=== PATIENT | female | born 1985 | race Caucasian/White ===

== ENCOUNTER 2021-07-16 07:45 | Inpatient (IN) ==
[2021-07-16] MEDS ORDERED: OXYTOCIN 30 UNITS/500 ML BAG IV PRN (08:03)
[2021-07-16 08:27] LABS: Hematocrit (blood only) 38.5 % (37-47); Hemoglobin 12.8 g/dL (12.0-16.0); Mean Corpuscular Hemoglobin 30.5 pg (25-34); Mean Corpuscular Hgb Conc 33.2 g/dL (32-36); Mean Corpuscular Volume 91.9 fL (80-100); Mean Platelet Volume 10.6 fL (7.4-10.4); Platelet Count 190 K/uL (130-400); RDW Coefficient of Variation 14.5 % (11.5-14.5); RDW Standard Deviation 48.9 fL (36.4-46.3); Red Blood Count 4.19 M/uL (4.2-5.4)
[2021-07-16] MEDS ORDERED: PENICILLIN G POTASSIUM 6 MU in DEXTROSE 5% 250 ML IV ONE (08:30)
[2021-07-16] MEDS: LACTATED RINGER'S 1,000 ML IV PRN ×3 (09:18→20:23)
[2021-07-16] MEDS: OXYTOCIN 30 UNITS/500 ML BAG IV PRN (09:30)
--- NOTE | 2021-07-16 09:45 | Procedure Note ---
Procedure Note Date of Service July 16, 2021 Note Patient was placed in L&D bed and a reactive NST was obtained. The flores bulb placement process was explained to the patient and all questions answered to her satisfaction. She was positioned in lithotomy, and a latex flores was prepared with a lubricated stylet and a syringe of 30cc sterile water. A gloved hand was used to identify and examine the cervix which was found to be fingertip, thick and high. The catheter was advanced to a point just outside the internal os, then the flores was slid forward off of the stylet and into the uterine cavity outside the amniotic sac. The stylet was removed, and the flores balloon was in flated to 30cc. The flores was gently seated downward against the internal cervical os and fixed to the patient's thigh. The heart tones remained cat 1. Coding
--- NOTE | 2021-07-16 12:08 | Labor Progress Brief Note ---
Date of Service July 16, 2021 Subjective Beginning to feel some back pain now. 35yo at 40w5d with IVF ICSI , RH neg, GBS pos. Flores in place as of this morning, was not able to be brought in last night for flores due to patient census and multiple COVID+ patients in unit. Assessment & Plan (1) resulting from in vitro fertilization, antepartum: Plan: Cont flores, Pit, epidural on request. (2) GBS (group B Streptococcus carrier), +RV culture, currently : Plan: Cont PCN Admission and Anticipated Discharge Date Admission Date: July 16, 2021 Physical Exam Genitourinary: /balloon in place on exam FHT Cat 1 [place] rare ctx tracing Results & Data ([facility]) Vital Signs (Past 12 Hours) Vital Signs Temp Pulse Resp BP 07/16/21 11:30 97.9 F 70 20 140/64 07/16/21 10:37 68 20 126/61 07/16/21 09:35 72 18 123/59 L 07/16/21 08:10 97.9 F 18 07/16/21 07:57 83 130/79 Coding Level of Care Code None Diagnoses resulting from in vitro fertilization, antepartum O09.819 GBS (group B Streptococcus carrier), +RV culture, currently O99.820
[2021-07-16] MEDS: PENICILLIN G POTASSIUM 3 MU in DEXTROSE 5% 100 ML IV PRN ×3 (13:26→21:34)
--- NOTE | 2021-07-16 15:43 | Labor Progress Brief Note ---
Date of Service July 16, 2021 Subjective Comfortable Assessment & Plan (1) resulting from in vitro fertilization, antepartum: Plan: Start increasing pitocin, epidural on request. AROM after epidural and first two doses PCN complete. Admission and Anticipated Discharge Date Admission Date: July 16, 2021 Physical Exam Genitourinary: [place] removed with gentle traction, /-2 FHT Cat 1 [place] Q3-4 Pit @ 3 Results & Data ([facility] [place]) Vital Signs (Past 12 Hours) Vital Signs Temp Pulse Resp BP 07/16/21 15:24 62 133/59 L 07/16/21 14:20 64 18 121/72 07/16/21 13:33 65 20 134/71 07/16/21 12:33 81 18 117/66 07/16/21 11:30 97.9 F 70 20 140/64 07/16/21 10:37 68 20 126/61 07/16/21 09:35 72 18 123/59 L 07/16/21 08:10 97.9 F 18 07/16/21 07:57 83 130/79 Coding Level of Care Code None Diagnoses resulting from in vitro fertilization, antepartum O09.819
[2021-07-16] MEDS ORDERED: ePHEDrine sulfate 50 MG/ML AMP ONE (19:52)
[2021-07-16] MEDS ORDERED: fentaNYL citrate 100 MCG/2 ML VIAL ONE (19:53)
[2021-07-16] MEDS ORDERED: SODIUM CHLORIDE 0.9% INJ 10 ML VIAL ONE ×2 (19:53→23:45)
[2021-07-16] MEDS ORDERED: BUPIVACAINE 0.25% 30 ML VIAL ONE ×2 (19:53→23:46)
[2021-07-16] MEDS ORDERED: fentaNYL 2MCG/ML ROPIVACAINE 1.25MG/ML 100 ML BAG EPI ONE (19:53)
[2021-07-16] MEDS ORDERED: NALOXONE HCL 0.4 MG/1 ML VIAL/CARP IV PRN (20:24)
[2021-07-16] MEDS ORDERED: diphenhydrAMINE 50 MG/ML VIAL IV PRN (20:24)
[2021-07-16] MEDS ORDERED: NALOXONE HCL 1 MG in SODIUM CHLORIDE 0.9% 1000ML 1,000 ML IV PRN (20:24)
[2021-07-16] MEDS ORDERED: fentaNYL 2MCG/ML ROPIVACAINE 1.25MG/ML 100 ML BAG EPI PRN (20:24)
[2021-07-16] MEDS ORDERED: NALBUPHINE HCL INJ 10 MG/ML AMP IV PRN (20:24)
[2021-07-16] MEDS ORDERED: ePHEDrine sulfate 50 MG/ML AMP IV PRN (20:24)
--- NOTE | 2021-07-16 20:24 | Anesthesiology Consultation ---
Date of Service July 16, 2021 Assessment & Plan Chart Review Chart Review: Patient NOT seen in Pre Admission Testing and Acceptable Risk for Labor Epidural Consults Requested none ASA ASA2 Proposed Anesthesia Anesthesia Type: Labor Epidural Risk / Benefits Reviewed With: PT / POA / Parent / Guardian, Accepts Plan and Informed Consent Obtained History Height/Weight Height: 5 ft 10 in Weight: 88.451 kg Allergies Allergy/AdvReac Type Severity Reaction Status Date / Time No Known Allergies Allergy Verified 07/15/21 13:54 Medications Home Medications Medication Instructions Recorded Confirmed Last Taken prenat.vits,severino,mlp-[id number] 1 tab PO DAILY 12/06/20 07/16/21 07/15/21 calcium carbonate [Tums] PO 05/02/21 07/15/21 Unknown ferrous sulfate PO 05/02/21 07/15/21 07/13/21 Active Medications Generic Name Dose Route Start Last Admin Trade Name Freq PRN Reason Stop Dose Admin Oxytocin 30 units in 500 mls @ 15 mls/hr 07/16/21 08:03 07/16/21 19:15 Pitocin IV 07/18/21 08:02 0.9 units/hr .Q24H PRN 15 mls/hr Labor Induction/Augmentation Titration Protocol 0.9 UNITS/HR Lactated Ringer's 1,000 mls @ 125 mls/hr 07/16/21 08:03 07/16/21 20:23 Lr IV 07/18/21 08:02 125 mls/hr .Q8H PRN Administration L&D Protocol Protocol Penicillin G Potassium 3 mu/ 106 mls @ 100 mls/hr 07/16/21 11:04 07/16/21 18:39 Dextrose IV 07/26/21 11:03 Infused Q4H PRN Infusion GBS(+) Until Delivery Past Medical History Medical History (Updated 07/16/21 @ 08:31 by Yudelka Velasquez, ARLIN) Asthma Heart murmur History of chicken pox Exercise / Class Metabolic Activity II 4-5 Yardwork/Stairs/Walk up hill Past Family History Family History Grandmother (Maternal) Ovarian cancer Grandfather (Paternal) Diabetes Hypertension Grandmother (Paternal) Diabetes Father Hypertension Kidney stone Mother Pituitary tumor Denies family history of Breast cancer Colorectal cancer Past Surgical History Surgical History S/P inguinal hernia repair S/P wisdom tooth extraction Past Anesthesia History No Hx of Anesthesia Complications and No Family Hx of Anesthesia Complications History of PONV No Hx of PONV and No Hx of Motion Sickness Social History Smoking Status: Never smoker Hx Alcohol Use: No Hx Substance Use: No Physical Exam Vital Signs Last Vital Signs Temp 36.9 C 07/16/21 19:15 Pulse 81 07/16/21 20:22 Resp 16 07/16/21 20:15 BP 119/56 L 07/16/21 20:22 Pulse Ox 96 07/16/21 20:19 ENMT Mouth: no dentition abnormality Thyromental Distance: > or= 3.5 Finger Breadths Mallampati Class: II Neck normal visual inspection Respiratory normal respiratory effort Auscultation: lungs clear to auscultation bilaterally Cardiovascular Rate/Rhythm: regular rate and regular rhythm Psychiatric Orientation: alert Testing Laboratory Results 07/16/21 08:15
[2021-07-16] MEDS: ONDANSETRON INJ 2 MG/ML 2 ML VIAL IV PRN (23:06)
--- NOTE | 2021-07-16 23:40 | Communication Note ---
Date of Service: July 16, 2021 After speaking with the gastrointestinal technician and nursing staff, apparently several patients on the OB floor were having symptoms of nausea, pruritis, and sedation. HR variability OK during labor for all patients. Each of these patients have been receiving continuous epidural anesthesia with Ropivicane 0.1% + Fentanyl 2mcg/cc. All have had excellent pain control. All of these epidural infusions had been mixed at the same time on the same date. I suspect that the concentration of fentanyl may be incorrect in these infusions. The epidural infusion has been stopped and patient is being monitored with continuous CO2, pulse oxymetry, and 1:1 nursing care. Epidural bags have sent for mass spectrometry to determine drug concentration in the infusion. Plan to observe closely, supplemental O2 as needed, verbal and tactile stimulation, and low dose naloxone as needed for significant respiratory depression, and zofran as needed for nausea. New epidural infusions have been ordered and will be prepared fresh from pharmacy. In the mean time, I will dose patients with low dose plain bupivicane for breakthrough labor pains. Side effects of the fentanyl including respiratory depression should be significantly improved after infusion has been stopped for ~3-3.5 hours, though this may be difficult to adequately predict in the patient. Will follow along closely with OB until resolution. I have spoken with the patient and her , they understand the plan and have had the chance to ask any questions.
--- NOTE | 2021-07-17 00:16 | Communication Note ---
Date of Service: July 17, 2021 Delayed documentation: Patient's epidural infusion was stopped due to suspicion of an error in formulation of epidural drug bags in use on labor and delivery at this time. The patient was experiencing sedation, blurred vision and itching. She and the FOB were counseled this doctor and (separately) by the anesthesiologist, Dr. Johnson. We discussed both the availability of as-needed pain management for her labor and the management of possible excess opiate dose which she may have received. All questions were answered to the satisfaction of the patient and the FOB. She is without labor pain at this time. monitoring is reassuring.
[2021-07-17] MEDS: LACTATED RINGER'S 1,000 ML IV PRN ×3 (01:02→20:02)
[2021-07-17] MEDS: PENICILLIN G POTASSIUM 3 MU in DEXTROSE 5% 100 ML IV PRN ×6 (01:32→22:01)
--- NOTE | 2021-07-17 03:02 | Labor Progress Brief Note ---
Date of Service July 17, 2021 Subjective Patient remains without pain, however is now experiencing a resurgence of her side effects of somnolence and itching. This has been gradual since the new epidural bag was hung. She is worried about this. Assessment & Plan (1) resulting from in vitro fertilization, antepartum: Plan: Patient is undergoing induction of labor for postdates. Currently 5cm, s/p AR OM, and has been recently experiencing side effects after epidural placement that are concerning for possible opiate / narcotization. Due to concerns for improper dosing in epidural bag, the original bag was replaced and now due to recurring symptoms the new bag is also being discontinued. This situation has been discussed with Dr. Johnson who is returning to the hospital to provide as- needed boluses of ropivicaine or bupivicaine epidurally for pain control, as well as to assist in management of residual narcotization if necessary. Meanwhile the patient is able to maintain adequate respiratory rate and O2 saturation with verbal and tactile stimulation. tracing is reassuring. The patient and FOB were counseled on the difficulty of deciding whether it is best to continue pitocin, given the risk of infection if she remains ruptured and without progression towards delivery, or to allow pitocin to stay off, in hopes that more time with the fetus in-utero will decrease the risks of the requiring narcan or resuscitation after delivery. We settle on using a non-aggressive induction approach, resuming pitocin but aiming for contractions Q3-4min, hoping for forward progress without reaching delivery in the next hour or so. Admission and Anticipated Discharge Date Admission Date: July 16, 2021 Physical Exam Genitourinary: Cervix unchanged at 5/80/-2 LOF clear continues FHT Cat 1 [place] with LA waves, no true contraction pattern Pitocin off since epidural bag removed / replaced Results & Data ([facility]) Vital Signs (Past 12 Hours) Vital Signs Temp Pulse Resp BP Pulse Ox 07/17/21 02:54 72 96 07/17/21 02:49 53 L 89 L 07/17/21 02:47 54 L 95/49 L 07/17/21 02:44 52 L 94 07/17/21 02:39 76 97 07/17/21 02:34 85 97 07/17/21 02:32 55 L 96/54 L 87 L 07/17/21 02:29 66 96 07/17/21 02:24 57 L 96 07/17/21 02:20 10 L 07/17/21 02:19 61 89 L 07/17/21 02:18 66 86 L 07/17/21 02:14 55 L 92 07/17/21 02:09 54 L 91 07/17/21 02:07 49 L 87 L 07/17/21 02:04 59 L 92 07/17/21 02:02 60 12 107/56 L 07/17/21 01:59 59 L 95 07/17/21 01:54 60 93 07/17/21 01:49 56 L 97 07/17/21 01:47 58 L 104/51 L 07/17/21 01:44 67 98 07/17/21 01:41 56 L 85 L 07/17/21 01:39 54 L 88 L 07/17/21 01:36 59 L 87 L 07/17/21 01:34 69 94 07/17/21 01:32 58 L 18 108/53 L 07/17/21 01:29 62 96 07/17/21 01:26 56 L 101/50 L 07/17/21 01:24 69 95 07/17/21 01:21 68 96/45 L 07/17/21 01:19 66 96 07/17/21 01:17 63 99/51 L 07/17/21 01:14 60 96 07/17/21 01:12 60 99/50 L 07/17/21 01:09 67 96 07/17/21 01:06 54 L 99/49 L 07/17/21 01:04 71 96 07/17/21 01:03 60 115/57 L 07/17/21 01:01 97.7 F 12 07/17/21 00:59 59 L 95 07/17/21 00:56 66 118/59 L 07/17/21 00:54 88 98 07/17/21 00:52 71 108/49 L 07/17/21 00:49 61 95 07/17/21 00:46 61 92/55 L 07/17/21 00:44 68 96 07/17/21 00:42 56 L 93/46 L 07/17/21 00:39 60 97 07/17/21 00:37 55 L 90/45 L 07/17/21 00:34 53 L 93 07/17/21 00:32 57 L 14 99/48 L 07/17/21 00:29 61 94 07/17/21 00:26 53 L 89/46 L 07/17/21 00:24 59 L 95 07/17/21 00:22 57 L 106/53 L 07/17/21 00:20 14 07/17/21 00:19 56 L 97 07/17/21 00:17 64 107/61 07/17/21 00:15 12 07/17/21 00:14 64 94 07/17/21 00:12 53 L 97/49 L 07/17/21 00:10 14 07/17/21 00:09 65 95 07/17/21 00:07 54 L 108/51 L 87 L 07/17/21 00:04 58 L 94 07/17/21 00:02 54 L 97/50 L 07/17/21 00:00 53 L 95/46 L 89 L 07/16/21 23:59 58 L 90 07/16/21 23:54 60 90 07/16/21 23:53 61 88 L 07/16/21 23:51 57 L 101/52 L 07/16/21 23:49 59 L 90 07/16/21 23:44 58 L 91 07/16/21 23:43 64 87 L 07/16/21 23:41 54 L 14 116/54 L 07/16/21 23:39 67 94 07/16/21 23:37 59 L 94 07/16/21 23:36 55 L 103/54 L 07/16/21 23:34 60 93 07/16/21 23:31 63 106/56 L 07/16/21 23:30 54 L 93 07/16/21 23:29 53 L 93 07/16/21 23:27 52 L 100/51 L 07/16/21 23:24 56 L 90 07/16/21 23:21 58 L 120/58 L 07/16/21 23:19 70 95 07/16/21 23:18 53 L 20 94 07/16/21 23:17 63 116/57 L 07/16/21 23:14 70 96 07/16/21 23:11 55 L 117/54 L 07/16/21 23:09 69 97 07/16/21 23:07 60 14 111/53 L 07/16/21 23:04 73 96 07/16/21 23:03 103 H 130/63 07/16/21 22:59 68 96 07/16/21 22:58 16 07/16/21 22:56 58 L 113/56 L 07/16/21 22:54 67 97 07/16/21 22:52 63 116/62 07/16/21 22:49 66 96 07/16/21 22:48 16 07/16/21 22:47 123 H 136/91 07/16/21 22:44 61 97 07/16/21 22:41 61 113/74 07/16/21 22:39 50 L 97 07/16/21 22:37 97.7 F 62 16 111/74 07/16/21 22:34 55 L 97 07/16/21 22:31 65 121/56 L 07/16/21 22:29 64 95 07/16/21 22:24 117 H 98 07/16/21 22:21 51 L 115/57 L 07/16/21 22:19 55 L 97 07/16/21 22:16 18 07/16/21 22:15 61 94 07/16/21 22:14 59 L 94 07/16/21 22:12 14 07/16/21 22:09 49 L 93 07/16/21 22:06 16 07/16/21 22:04 57 L 95 07/16/21 22:03 71 125/59 L 07/16/21 21:59 54 L 91 07/16/21 21:54 54 L 94 07/16/21 21:52 61 94 07/16/21 21:49 81 96 07/16/21 21:48 65 132/60 07/16/21 21:44 71 97 07/16/21 21:39 62 97 07/16/21 21:34 69 98 07/16/21 21:33 72 133/67 07/16/21 21:29 74 96 07/16/21 21:28 89 128/62 94 07/16/21 21:24 78 97 07/16/21 21:21 63 94 07/16/21 21:19 71 93 07/16/21 21:18 80 124/60 07/16/21 21:16 86 94 07/16/21 21:14 63 94 07/16/21 21:11 75 94 07/16/21 21:09 69 94 07/16/21 21:04 61 94 07/16/21 21:03 71 122/56 L 94 07/16/21 21:00 16 07/16/21 20:59 69 94 07/16/21 20:55 68 93 07/16/21 20:54 68 94 07/16/21 20:49 73 118/59 L 95 07/16/21 20:45 16 07/16/21 20:44 76 97 07/16/21 20:39 71 97 07/16/21 20:34 87 97 07/16/21 20:32 73 114/55 L 07/16/21 20:30 20 07/16/21 20:29 78 97 07/16/21 20:26 96 H 112/55 L 07/16/21 20:24 77 111/56 L 97 07/16/21 20:22 81 119/56 L 07/16/21 20:20 71 18 111/56 L 07/16/21 20:19 77 96 07/16/21 20:18 77 124/58 L 07/16/21 20:17 97 H 129/61 07/16/21 20:15 16 07/16/21 20:14 78 123/58 L 96 07/16/21 20:13 64 118/58 L 07/16/21 20:10 18 07/16/21 20:09 72 97 07/16/21 20:04 64 97 07/16/21 19:59 76 96 07/16/21 19:15 98.4 F 18 07/16/21 19:11 63 125/63 07/16/21 18:17 67 18 137/65 07/16/21 17:29 63 20 111/56 L 07/16/21 16:19 59 L 16 119/57 L 07/16/21 15:24 98.1 F 62 16 133/59 L Coding Level of Care Code None Diagnoses resulting from in vitro fertilization, antepartum O09.819
[2021-07-17] MEDS ORDERED: [UNRECOGNIZED DRUG - REMARK] EPI PRN (04:06)
--- NOTE | 2021-07-17 05:04 | Communication Note ---
Date of Service: July 17, 2021 Symptoms of excess opioid were fading. A newly made epidural infusion from pharmacy was started. After ~2 hours, symptoms began to return. Patient had no symptoms of local anesthetic systemic toxicity, and had good lower extremity strength. Epidural analgesia sensory level as expected. Infusion has been stopped, patient has no pain. Will resume infusion with a non-opioid epidural infusion when necessary. Continue to monitor.
--- NOTE | 2021-07-17 07:38 | Labor Progress Brief Note ---
Date of Service July 17, 2021 Subjective I entered the patient's room at approximately 0630, and found her apparently sleeping, with the FOB sleeping in his chair at the other side of her bed. The patient did not respond to voice, nor to gentle tactile stimulation. Resp rate was 10-12, and O2 saturation was 94% per the pulse oximeter. I hit the nurse call moyer and began sternal rub, which resulted in the patient opening her eyes momentarily but then returning promptly to sleep. I loudly asked her for her name and where she was, repeatedly, while continuing sternal rub; the only response was an unintelligible moan. At that point RN Jena was arriving in the room and I gave a verbal order for her to give 0.4mg IV narcan x1, which she quickly did. The patient's response was to become spontaneously alert within approximately 30 seconds, to ask where she was, and to state that she was going to vomit. The had been warned in advance that emesis was likely to occur upon adminstration of the narcan, and he had asked to hold the emesis bag for her; he was there to assist her. heart tones showed immediate increase in variability concurrent with the patient's increase in alertness, as well. Assessment & Plan (1) resulting from in vitro fertilization, antepartum: Plan: Induction of labor complicated by narcotization. Reversal with narcan given upon my examination this morning. Shortly after this, I was contacted by [facility] with the information that this patient was most likely affected by a significant dose of morphine in her original, incorrectly-compounded epidural bag. The dose is believed to have been 200mg morphine in the 100cc bag. This would be consistent with the long duration of action and the symptoms we have seen, and with narcan reversal. This was discussed with Dr. Johnson, who opined that this patient should be moved to ICU for a narcan drip for 24 hours given the expectation of prolonged narcotic effect. There is a change of shift in process, and the oncoming anesthesiologist Dr. Gentry Giang is discussing this with Dr. Johnson right now. Our deputy director of nursing is obtaining the information necessary to move the patient to ICU if that will indeed be the plan per Dr. Giang who is assuming anesthesia care of these patients. At this time her resp rate is 14, O2 sat is 95%, status is reassuring and patient/fetus are stable with the necessary respiratory support and narcan available to ensure their safety while final plans for the course of her labor are made. Pitocin has been stopped for now. Situational awareness includes the reality that a second similarly-affected patient is currently near complete dilation, and we are attempting to provide the safest delivery timing and location for both of these women and their babies; this is a factor in the decision to halt pitocin on Ms. Stockton for the moment. Dr. Eugene is the oncoming physician for today and has been called, and is en route to allow for two RN [facility] in house while these transfers are made if they are to occur, and to allow plenty of time for complete signout of the complex issues surrounding this patient's care and safety. Admission and Anticipated Discharge Date Admission Date: July 16, 2021 Physical Exam Genitourinary: FHT cat 1 with increase in variability immediately upon narcan effect, as above. Avimor with contractions spaced well apart, appearing 5-8 min. Results & Data ([facility]) Vital Signs (Past 12 Hours) Vital Signs Temp Pulse Resp BP Pulse Ox 07/17/21 07:04 76 98 07/17/21 07:03 73 157/80 H 07/17/21 06:59 82 98 07/17/21 06:54 65 99 07/17/21 06:49 112 H 95 07/17/21 06:44 116 H 96 07/17/21 06:39 106 H 93 07/17/21 06:34 63 91 07/17/21 06:32 67 157/72 H 07/17/21 06:30 63 86 L 07/17/21 06:29 67 89 L 07/17/21 06:24 64 92 07/17/21 06:19 88 91 07/17/21 06:16 62 145/69 H 86 L 07/17/21 06:14 64 92 07/17/21 06:09 63 92 07/17/21 06:04 77 90 07/17/21 06:02 61 141/65 H 07/17/21 06:01 61 86 L 07/17/21 05:59 79 93 07/17/21 05:54 67 93 07/17/21 05:49 56 L 90 07/17/21 05:47 59 L 131/63 86 L 07/17/21 05:44 65 93 07/17/21 05:39 56 L 92 07/17/21 05:34 56 L 93 07/17/21 05:33 97.7 F 14 07/17/21 05:32 69 144/59 H 07/17/21 05:29 62 93 07/17/21 05:24 70 94 07/17/21 05:19 61 94 07/17/21 05:17 64 150/69 H 85 L 07/17/21 05:14 60 94 07/17/21 05:09 63 94 07/17/21 05:04 65 94 07/17/21 05:01 71 136/62 07/17/21 04:59 61 94 07/17/21 04:54 57 L 94 07/17/21 04:49 58 L 94 07/17/21 04:47 65 133/62 07/17/21 04:44 60 94 07/17/21 04:40 58 L 86 L 07/17/21 04:39 97.9 F 57 L 12 80 L 07/17/21 04:34 58 L 85 L 07/17/21 04:29 56 L 94 07/17/21 04:24 58 L 94 07/17/21 04:19 49 L 14 91 07/17/21 04:18 61 128/62 07/17/21 04:14 51 L 14 86 L 07/17/21 04:10 60 87 L 07/17/21 04:09 67 90 07/17/21 04:04 60 93 07/17/21 04:02 61 123/59 L 07/17/21 04:00 12 07/17/21 03:59 62 95 07/17/21 03:54 61 94 07/17/21 03:49 56 L 95 07/17/21 03:47 57 L 125/62 07/17/21 03:45 10 L 07/17/21 03:44 74 96 07/17/21 03:39 63 95 07/17/21 03:34 63 95 07/17/21 03:32 60 135/57 L 87 L 07/17/21 03:29 69 96 07/17/21 03:24 58 L 95 07/17/21 03:19 55 L 95 07/17/21 03:18 12 07/17/21 03:17 65 119/65 86 L 07/17/21 03:14 63 95 07/17/21 03:09 61 96 07/17/21 03:07 12 07/17/21 03:04 61 95 07/17/21 03:02 97.7 F 57 L 14 114/67 07/17/21 02:59 65 97 07/17/21 02:54 72 96 07/17/21 02:50 97.7 F 12 07/17/21 02:49 53 L 89 L 07/17/21 02:47 54 L 95/49 L 07/17/21 02:44 52 L 94 07/17/21 02:43 10 L 07/17/21 02:39 76 97 07/17/21 02:34 85 97 07/17/21 02:32 55 L 96/54 L 87 L 07/17/21 02:29 66 96 07/17/21 02:24 57 L 96 07/17/21 02:20 10 L 07/17/21 02:19 61 89 L 07/17/21 02:18 66 86 L 07/17/21 02:14 55 L 92 07/17/21 02:09 54 L 91 07/17/21 02:07 49 L 87 L 07/17/21 02:04 59 L 92 07/17/21 02:02 60 12 107/56 L 07/17/21 01:59 59 L 95 07/17/21 01:54 60 93 07/17/21 01:49 56 L 97 07/17/21 01:47 58 L 104/51 L 07/17/21 01:44 67 98 07/17/21 01:41 56 L 85 L 07/17/21 01:39 54 L 88 L 07/17/21 01:36 59 L 87 L 07/17/21 01:34 69 94 07/17/21 01:32 58 L 18 108/53 L 07/17/21 01:29 62 96 07/17/21 01:26 56 L 101/50 L 07/17/21 01:24 69 95 07/17/21 01:21 68 96/45 L 07/17/21 01:19 66 96 07/17/21 01:17 63 99/51 L 07/17/21 01:14 60 96 07/17/21 01:12 60 99/50 L 07/17/21 01:09 67 96 07/17/21 01:06 54 L 99/49 L 07/17/21 01:04 71 96 07/17/21 01:03 60 115/57 L 07/17/21 01:01 97.7 F 12 07/17/21 00:59 59 L 95 07/17/21 00:56 66 118/59 L 07/17/21 00:54 88 98 07/17/21 00:52 71 108/49 L 07/17/21 00:49 61 95 07/17/21 00:46 61 92/55 L 07/17/21 00:44 68 96 07/17/21 00:42 56 L 93/46 L 07/17/21 00:39 60 97 07/17/21 00:37 55 L 90/45 L 07/17/21 00:34 53 L 93 07/17/21 00:32 57 L 14 99/48 L 07/17/21 00:29 61 94 07/17/21 00:26 53 L 89/46 L 07/17/21 00:24 59 L 95 07/17/21 00:22 57 L 106/53 L 07/17/21 00:20 14 07/17/21 00:19 56 L 97 07/17/21 00:17 64 107/61 07/17/21 00:15 12 07/17/21 00:14 64 94 07/17/21 00:12 53 L 97/49 L 07/17/21 00:10 14 07/17/21 00:09 65 95 07/17/21 00:07 54 L 108/51 L 87 L 07/17/21 00:04 58 L 94 07/17/21 00:02 54 L 97/50 L 07/17/21 00:00 53 L 95/46 L 89 L 07/16/21 23:59 58 L 90 07/16/21 23:54 60 90 07/16/21 23:53 61 88 L 07/16/21 23:51 57 L 101/52 L 07/16/21 23:49 59 L 90 07/16/21 23:44 58 L 91 07/16/21 23:43 64 87 L 07/16/21 23:41 54 L 14 116/54 L 07/16/21 23:39 67 94 07/16/21 23:37 59 L 94 07/16/21 23:36 55 L 103/54 L 07/16/21 23:34 60 93 07/16/21 23:31 63 106/56 L 07/16/21 23:30 54 L 93 07/16/21 23:29 53 L 93 07/16/21 23:27 52 L 100/51 L 07/16/21 23:24 56 L 90 07/16/21 23:21 58 L 120/58 L 07/16/21 23:19 70 95 07/16/21 23:18 53 L 20 94 07/16/21 23:17 63 116/57 L 07/16/21 23:14 70 96 07/16/21 23:11 55 L 117/54 L 07/16/21 23:09 69 97 07/16/21 23:07 60 14 111/53 L 07/16/21 23:04 73 96 07/16/21 23:03 103 H 130/63 07/16/21 22:59 68 96 07/16/21 22:58 16 07/16/21 22:56 58 L 113/56 L 07/16/21 22:54 67 97 07/16/21 22:52 63 116/62 07/16/21 22:49 66 96 07/16/21 22:48 16 07/16/21 22:47 123 H 136/91 07/16/21 22:44 61 97 07/16/21 22:41 61 113/74 07/16/21 22:39 50 L 97 07/16/21 22:37 97.7 F 62 16 111/74 07/16/21 22:34 55 L 97 07/16/21 22:31 65 121/56 L 07/16/21 22:29 64 95 07/16/21 22:24 117 H 98 07/16/21 22:21 51 L 115/57 L 07/16/21 22:19 55 L 97 07/16/21 22:16 18 07/16/21 22:15 61 94 07/16/21 22:14 59 L 94 07/16/21 22:12 14 07/16/21 22:09 49 L 93 07/16/21 22:06 16 07/16/21 22:04 57 L 95 07/16/21 22:03 71 125/59 L 07/16/21 21:59 54 L 91 07/16/21 21:54 54 L 94 07/16/21 21:52 61 94 07/16/21 21:49 81 96 07/16/21 21:48 65 132/60 07/16/21 21:44 71 97 07/16/21 21:39 62 97 07/16/21 21:34 69 98 07/16/21 21:33 72 133/67 07/16/21 21:29 74 96 07/16/21 21:28 89 128/62 94 07/16/21 21:24 78 97 07/16/21 21:21 63 94 07/16/21 21:19 71 93 07/16/21 21:18 80 124/60 07/16/21 21:16 86 94 07/16/21 21:14 63 94 07/16/21 21:11 75 94 07/16/21 21:09 69 94 07/16/21 21:04 61 94 07/16/21 21:03 71 122/56 L 94 07/16/21 21:00 16 07/16/21 20:59 69 94 07/16/21 20:55 68 93 07/16/21 20:54 68 94 07/16/21 20:49 73 118/59 L 95 07/16/21 20:45 16 07/16/21 20:44 76 97 07/16/21 20:39 71 97 07/16/21 20:34 87 97 07/16/21 20:32 73 114/55 L 07/16/21 20:30 20 07/16/21 20:29 78 97 07/16/21 20:26 96 H 112/55 L 07/16/21 20:24 77 111/56 L 97 07/16/21 20:22 81 119/56 L 07/16/21 20:20 71 18 111/56 L 07/16/21 20:19 77 96 07/16/21 20:18 77 124/58 L 07/16/21 20:17 97 H 129/61 07/16/21 20:15 16 07/16/21 20:14 78 123/58 L 96 07/16/21 20:13 64 118/58 L 07/16/21 20:10 18 12/15/21 20:09 72 97 07/16/21 20:04 64 97 07/16/21 19:59 76 96 07/16/21 19:15 98.4 F 18 07/16/21 19:11 63 125/63 Coding Level of Care Code None Diagnoses resulting from in vitro fertilization, antepartum O09.819
[2021-07-17] MEDS ORDERED: NALOXONE HCL 1 MG in SODIUM CHLORIDE 0.9% 1000ML 1,000 ML IV PRN (07:46)
--- NOTE | 2021-07-17 08:07 | Communication Note ---
Date of Service: July 17, 2021 Full sign out on the patient was given to me be Dr. Johnson. An epidural was placed last night to control labor pain. The patient became sedated and the epidural was discontinued. Subsequently, it was discovered that the patient likely received morphine through the epidural. The patient is currently on [place] oxygen. Her vital signs are stable with SpO2 96. ETCO2 is in the 50s to 60s. Her baby's tracing looks good with HR in the 140s. The patient is sleepy but easily arousable. I discussed with the patient and her that due to the long acting nature of morphine, we will continue to closely monitor the patient and her baby. We will start a low dose naloxone gtt and give boluses of naloxone as necessary. The epidural will be restarted with ropivacaine only at 6 ml/hr. If the patient becomes more somnolent or desaturates below 92 we will consider transferring her to an ICU bed, but preferentially will deliver her on the L and D floor. Dr. Irizarry will be on standby for delivery of the baby.
[2021-07-17] MEDS: NALOXONE HCL 1 MG in SODIUM CHLORIDE 0.9% 1000ML 1,000 ML IV PRN (08:25)
--- NOTE | 2021-07-17 08:40 | Communication Note ---
Date of Service: July 17, 2021 Signout of patient care to Dr. Eugene occurred at the nursing station between 07:45 and 08:30 this morning, and was completed by a bedside signout in the patient room, including introducing the patient and FOB to Dr. Eugene. A low dose narcan gtt is now being started per Dr. Giang. The patient and FOB had an opportunity to ask questions. They are aware that the current belief per pharmacy is that she received a significant dose of morphine via her original epidural bag. The know that her management plan was determined via a team meeting this morning including anesthesia, pediatrics, pipe production worker and nursing staff and that we are preared to safely support her through the remainder of her delivery process. At this time the patient is comfortable, sleepy but easily arousable, status is reassuring. The plan is to resume her pitocin after the delivery of another affected patient who is currently completely dilated, in order to stagger deliveries and ensure available resources for the anticipated resuscitation needs. She and the FOB express understanding and comfort with this plan.
[2021-07-17] MEDS: FAMOTIDINE 20 MG TAB PO SCH (11:22)
[2021-07-17] MEDS ORDERED: LACTATED RINGER'S 500 ML IV ONE (12:02)
[2021-07-17] MEDS: OXYTOCIN 30 UNITS/500 ML BAG IV PRN (13:12)
--- NOTE | 2021-07-17 13:26 | Communication Note ---
Date of Service: July 17, 2021 The patient feels a little more awake now. She remains on a naloxone gtt. SpO2 is [address] Eugene is restarting her oxytocin gtt. The patient has been sipping apple juice. She does not have any pain from contractions.
[2021-07-17] MEDS ORDERED: CALCIUM CARBONATE 500 MG CHEWABLE TAB PO PRN ×3 (14:10→14:45)
[2021-07-17] MEDS: ONDANSETRON INJ 2 MG/ML 2 ML VIAL IV PRN (14:25)
--- NOTE | 2021-07-17 15:37 | Communication Note ---
Date of Service: July 17, 2021 I was called by the nurse. The patient had some retching and vomiting. She felt a heaviness in the center of her chest that worsened with positioning. Her vital signs are stable and the patient appears more awake than she was earlier. On exam the patient's lungs were clear. The patient felt that the discomfort was due to GERD. The patient had already received famotidine 20 mg po and Tums po. I spoke with pharmacy and the patient is okay to be given famotidine 20 mg IV. The patient will be positioned propped up on her side and will switch from side to side rather than sitting straight up. The patient remains on the low dose naloxone infusion IV.
[2021-07-17] MEDS ORDERED: FAMOTIDINE 20 MG in SYRINGE 3 ML IV ONE (15:45)
--- NOTE | 2021-07-17 18:54 | Labor Progress Brief Note ---
Date of Service July 17, 2021 Subjective Reason For Note: Routine Evaluation Current Pain Level(1-10): 2 Patient noted to have marked improvement in alertness. Normal RR and spO2. Able to do some self grooming Assessment & Plan (1) GBS (group B Streptococcus carrier), +RV culture, currently : (2) resulting from in vitro fertilization, antepartum: (3) Need for rhogam due to Rh negative mother: Plan: 35yo at 40w6d. IOL for late term. Course complicated by narcotics overose , see prior notes 1. Fetus: Cat 1 2. Labor: No change. IUPC placed 3. GBS: Positive - PCN complete 4. Vitals normal prolonged ROM: No s/s of infection. Continue to monitor. PCN for GBS positive Admission and Anticipated Discharge Date Admission Date: July 16, 2021 Physical Exam Gastrointestinal (Abdomen): Percussion/Palpation: abdomen soft; abdomen nontender Genitourinary: Manual OB Exam: + cervical dilation 5 cm, + cervical effacement 80%, + station -2 and + amniotic fluid clear OB Exam Monitor Tracing: + external FHT monitor used, + external uterine monitor used, + category I and + normal FHT variability; no early decelerations present, no late decelerations present and no variable decelerations Results & Data ([facility]) Vital Signs (Past 12 Hours) Vital Signs Temp Pulse Resp BP Pulse Ox 07/17/21 18:35 81 97 07/17/21 18:33 75 143/63 H 96 07/17/21 18:31 78 95 07/17/21 18:29 79 95 07/17/21 18:27 72 93 07/17/21 18:25 72 95 07/17/21 18:23 89 96 07/17/21 18:18 79 95 07/17/21 18:16 90 96 07/17/21 18:14 85 95 07/17/21 18:12 108 H 96 07/17/21 18:10 101 H 97 07/17/21 18:08 93 H 97 07/17/21 18:06 91 H 97 07/17/21 18:04 88 96 07/17/21 18:02 91 H 110/67 97 07/17/21 18:00 87 97 07/17/21 17:58 85 97 07/17/21 17:56 97 H 97 07/17/21 17:54 89 97 07/17/21 17:52 87 98 07/17/21 17:50 91 H 97 07/17/21 17:48 96 H 98 07/17/21 17:47 86 123/66 07/17/21 17:46 84 97 07/17/21 17:44 86 97 07/17/21 17:42 86 98 07/17/21 17:40 88 97 07/17/21 17:39 75 116/58 L 07/17/21 17:38 86 97 07/17/21 17:36 90 96 07/17/21 17:34 88 97 07/17/21 17:32 87 98 07/17/21 17:30 89 98 07/17/21 17:28 85 99 07/17/21 17:26 81 97 07/17/21 17:24 88 96 07/17/21 17:22 80 98 07/17/21 17:20 78 125/56 L 97 07/17/21 17:18 83 96 07/17/21 17:16 73 98 07/17/21 17:15 82 16 125/56 L 97 07/17/21 17:14 87 98 07/17/21 17:12 83 98 07/17/21 17:10 90 97 07/17/21 17:08 86 98 07/17/21 17:06 96 H 97 07/17/21 17:04 87 98 07/17/21 17:02 93 H 116/57 L 98 07/17/21 17:00 88 18 116/57 L 98 07/17/21 16:58 78 98 07/17/21 16:56 91 H 99 07/17/21 16:54 83 96 07/17/21 16:52 66 97 07/17/21 16:50 72 15 96 07/17/21 16:48 70 98 16 16:47 72 122/78 07/17/21 16:46 85 97 07/17/21 16:45 36.7 C 73 13 122/78 97 07/17/21 16:44 81 98 07/17/21 16:42 67 96 16 16:40 64 96 16 16:38 65 96 16 16:36 65 98 16 16:34 79 97 07/17/21 16:32 70 121/59 L 97 07/17/21 16:30 78 11 L 97 07/17/21 16:28 64 97 07/17/21 16:26 71 96 07/17/21 16:24 64 96 07/17/21 16:22 64 95 07/17/21 16:20 68 95 07/17/21 16:18 64 96 07/17/21 16:17 66 121/60 07/17/21 16:16 69 97 07/17/21 16:15 66 10 L 121/60 97 07/17/21 16:14 65 96 07/17/21 16:12 67 94 07/17/21 16:10 75 98 07/17/21 16:08 63 97 07/17/21 16:06 73 96 07/17/21 16:04 63 96 07/17/21 16:02 66 122/58 L 97 07/17/21 16:01 18 97 07/17/21 16:00 69 97 07/17/21 15:58 62 97 07/17/21 15:56 64 98 07/17/21 15:54 65 97 07/17/21 15:52 64 95 07/17/21 15:50 61 96 07/17/21 15:48 62 96 07/17/21 15:47 63 124/60 07/17/21 15:46 61 14 124/60 97 07/17/21 15:44 64 96 07/17/21 15:42 63 97 07/17/21 15:40 81 95 07/17/21 15:38 79 96 07/17/21 15:36 67 96 07/17/21 15:34 58 L 96 07/17/21 15:33 60 115/67 07/17/21 15:32 61 97 07/17/21 15:30 60 18 115/67 96 07/17/21 15:28 58 L 97 07/17/21 15:26 81 96 07/17/21 15:24 82 94 07/17/21 15:22 79 96 07/17/21 15:20 71 97 07/17/21 15:18 61 97 07/17/21 15:17 75 130/62 07/17/21 15:16 76 96 07/17/21 15:15 76 15 130/62 96 07/17/21 15:14 64 98 07/17/21 15:12 71 98 07/17/21 15:10 78 99 07/17/21 15:08 90 96 07/17/21 15:06 79 99 07/17/21 15:04 64 124/60 98 07/17/21 15:02 94 H 97 07/17/21 15:00 37.3 C 101 H 13 124/60 97 07/17/21 14:58 76 98 07/17/21 14:56 76 97 07/17/21 14:54 78 99 07/17/21 14:52 61 97 07/17/21 14:50 84 100 07/17/21 14:48 74 99 07/17/21 14:47 74 137/74 07/17/21 14:46 86 98 07/17/21 14:44 87 97 07/17/21 14:42 83 98 07/17/21 14:40 80 96 07/17/21 14:38 65 96 07/17/21 14:36 64 95 07/17/21 14:34 67 96 07/17/21 14:32 81 136/70 98 07/17/21 14:30 63 12 136/70 96 07/17/21 14:28 73 99 07/17/21 14:26 69 98 07/17/21 14:24 74 99 07/17/21 14:22 74 96 07/17/21 14:20 65 94 07/17/21 14:18 59 L 95 07/17/21 14:17 61 123/57 L 07/17/21 14:16 63 98 07/17/21 14:15 61 18 123/57 L 99 07/17/21 14:14 76 97 07/17/21 14:12 59 L 96 07/17/21 14:10 74 96 07/17/21 14:08 66 95 07/17/21 14:06 74 97 07/17/21 14:04 66 95 07/17/21 14:02 60 140/63 95 07/17/21 14:00 77 98 07/17/21 13:58 84 98 07/17/21 13:56 95 H 97 07/17/21 13:54 80 98 07/17/21 13:52 81 98 07/17/21 13:50 77 99 07/17/21 13:48 77 96 07/17/21 13:47 71 134/68 07/17/21 13:46 77 97 07/17/21 13:44 80 96 07/17/21 13:42 78 98 07/17/21 13:40 69 98 07/17/21 13:38 72 98 07/17/21 13:36 79 97 07/17/21 13:34 76 99 07/17/21 13:32 78 135/72 99 07/17/21 13:30 76 99 07/17/21 13:28 83 99 07/17/21 13:26 78 98 07/17/21 13:24 81 99 07/17/21 13:22 85 98 07/17/21 13:20 83 98 07/17/21 13:18 76 129/70 98 07/17/21 13:16 63 99 07/17/21 13:14 79 98 07/17/21 13:12 74 98 07/17/21 13:10 84 99 07/17/21 13:08 69 98 07/17/21 13:06 77 98 07/17/21 13:04 68 97 07/17/21 13:02 72 96 07/17/21 13:01 85 131/71 07/17/21 13:00 78 11 L 131/71 97 07/17/21 12:58 72 95 07/17/21 12:56 78 96 07/17/21 12:54 65 95 07/17/21 12:52 70 94 07/17/21 12:50 64 95 07/17/21 12:48 64 94 07/17/21 12:46 65 129/73 93 07/17/21 12:45 62 11 L 129/73 94 07/17/21 12:44 72 94 07/17/21 12:42 85 96 07/17/21 12:40 72 98 07/17/21 12:38 75 97 07/17/21 12:36 66 96 07/17/21 12:34 69 9 L 96 07/17/21 12:32 68 131/78 94 07/17/21 12:30 69 95 07/17/21 12:28 72 97 07/17/21 12:26 67 95 07/17/21 12:24 69 94 07/17/21 12:22 81 94 07/17/21 12:20 74 96 07/17/21 12:18 72 93 07/17/21 12:16 68 122/62 95 07/17/21 12:15 65 10 L 122/62 93 07/17/21 12:14 66 95 07/17/21 12:12 69 96 07/17/21 12:10 71 94 07/17/21 12:08 66 96 07/17/21 12:06 73 97 07/17/21 12:04 68 98 07/17/21 12:03 69 129/67 07/17/21 12:02 74 132/73 97 07/17/21 12:00 65 10 L 96 07/17/21 11:58 81 98 07/17/21 11:56 66 96 07/17/21 11:54 61 94 07/17/21 11:52 75 97 07/17/21 11:50 77 96 07/17/21 11:48 69 97 07/17/21 11:47 79 144/68 H 07/17/21 11:46 72 94 07/17/21 11:45 36.6 C 70 15 96 07/17/21 11:44 79 97 07/17/21 11:42 65 96 07/17/21 11:40 65 96 07/17/21 11:38 83 98 07/17/21 11:36 74 97 07/17/21 11:34 74 97 07/17/21 11:32 71 137/63 97 07/17/21 11:30 36.9 C 80 16 137/63 94 07/17/21 11:28 68 94 07/17/21 11:26 70 96 07/17/21 11:22 66 94 07/17/21 11:20 80 97 07/17/21 11:18 76 93 07/17/21 11:17 65 118/62 07/17/21 11:16 72 94 07/17/21 11:15 36.6 C 77 11 L 118/62 94 07/17/21 11:14 73 94 07/17/21 11:12 70 92 07/17/21 11:10 85 97 07/17/21 11:08 74 92 07/17/21 11:06 64 94 07/17/21 11:04 74 92 07/17/21 11:03 66 115/60 07/17/21 11:02 98 H 98 07/17/21 11:00 66 94 07/17/21 10:58 74 93 07/17/21 10:56 65 94 07/17/21 10:54 69 95 07/17/21 10:52 65 94 07/17/21 10:50 65 9 L 94 07/17/21 10:48 66 95 07/17/21 10:47 78 122/63 07/17/21 10:46 79 95 07/17/21 10:45 70 18 122/63 94 07/17/21 10:44 81 96 07/17/21 10:42 73 94 07/17/21 10:40 65 14 94 07/17/21 10:38 70 94 07/17/21 10:36 67 94 07/17/21 10:34 67 94 07/17/21 10:32 64 94 07/17/21 10:31 69 128/65 07/17/21 10:30 64 11 L 94 07/17/21 10:28 65 95 07/17/21 10:26 73 94 07/17/21 10:24 78 94 07/17/21 10:22 62 93 07/17/21 10:20 76 95 07/17/21 10:18 68 95 07/17/21 10:17 63 124/60 07/17/21 10:16 71 94 07/17/21 10:14 70 94 07/17/21 10:12 64 94 07/17/21 10:10 64 95 07/17/21 10:08 70 94 07/17/21 10:06 71 94 07/17/21 10:04 74 95 07/17/21 10:02 62 94 07/17/21 10:01 71 123/67 07/17/21 10:00 77 10 L 96 07/17/21 09:58 86 98 07/17/21 09:56 89 97 07/17/21 09:53 78 92 07/17/21 09:51 67 94 07/17/21 09:50 15 94 07/17/21 09:49 60 92 07/17/21 09:47 65 122/82 94 07/17/21 09:45 83 10 L 97 07/17/21 09:43 74 97 07/17/21 09:40 89 97 07/17/21 09:38 66 92 07/17/21 09:36 90 96 07/17/21 09:34 71 91 07/17/21 09:32 60 92 07/17/21 09:31 67 108/54 L 07/17/21 09:30 66 12 90 07/17/21 09:28 61 90 07/17/21 09:26 66 89 L 07/17/21 09:24 67 92 07/17/21 09:22 70 93 07/17/21 09:20 68 8 L 94 07/17/21 09:18 64 93 07/17/21 09:16 69 111/55 L 94 07/17/21 09:14 67 94 07/17/21 09:09 65 92 07/17/21 09:04 67 93 07/17/21 09:01 70 110/55 L 07/17/21 09:00 18 93 07/17/21 08:59 71 90 07/17/21 08:54 60 93 07/17/21 08:49 65 95 07/17/21 08:47 64 114/58 L 07/17/21 08:45 64 18 114/58 L 94 07/17/21 08:44 67 95 07/17/21 08:39 68 95 07/17/21 08:34 70 95 07/17/21 08:32 62 108/52 L 07/17/21 08:31 18 94 07/17/21 08:29 68 94 07/17/21 08:24 72 96 07/17/21 08:19 74 95 07/17/21 08:17 60 117/56 L 07/17/21 08:14 67 95 07/17/21 08:09 66 96 07/17/21 08:04 58 L 96 07/17/21 08:02 61 122/75 07/17/21 08:00 37.2 C 55 L 18 122/75 93 07/17/21 07:59 71 98 07/17/21 07:54 59 L 97 07/17/21 07:49 72 95 07/17/21 07:47 61 116/68 07/17/21 07:45 57 L 18 116/68 98 07/17/21 07:44 63 98 07/17/21 07:39 65 94 07/17/21 07:34 78 92 07/17/21 07:32 68 131/73 07/17/21 07:31 62 121/57 L 07/17/21 07:29 62 95 07/17/21 07:24 64 96 07/17/21 07:19 61 97 07/17/21 07:17 71 148/84 H 07/17/21 07:15 16 07/17/21 07:14 88 97 07/17/21 07:09 62 98 07/17/21 07:04 76 98 07/17/21 07:03 73 157/80 H 07/17/21 06:59 82 98 07/17/21 06:54 65 99 07/17/21 06:49 112 H 95 07/17/21 06:44 116 H 96 07/17/21 06:39 106 H 93 Coding Level of Care Code None Diagnoses GBS (group B Streptococcus carrier), +RV culture, currently O99.820 resulting from in vitro fertilization, antepartum O09.819 Need for rhogam due to Rh negative mother Z29.13
[2021-07-17] MEDS: ROPIVACAINE 0.5% EPI PRN ×2 (19:57→23:11)
[2021-07-17] MEDS: SODIUM CHLORIDE 0.9% EPI PRN ×2 (19:57→23:11)
[2021-07-17] MEDS: HCL EPI PRN ×2 (19:57→23:11)
--- NOTE | 2021-07-17 20:33 | Communication Note ---
Date of Service: July 17, 2021 The patient is doing well. She is awake and comfortable. She remains on naloxone gtt due to some itching. She is on [place] oxygen but the plan is to ween her off of it. The patient has a small amount of abdominal discomfort. Her ropivacaine epidural rate will be increased to 10 ml/hr with 24 ml one hr max.
--- NOTE | 2021-07-17 21:52 | Communication Note ---
Date of Service: July 17, 2021 The patient is starting to have more pain in her low abdomen. Her ropivacaine only epidural will be increased to 14 ml/hr with 30 ml one hr limit. Her bolus will stay at 4 ml every 10 minutes.
[2021-07-18] MEDS: PENICILLIN G POTASSIUM 3 MU in DEXTROSE 5% 100 ML IV PRN (01:59)
[2021-07-18] MEDS: HCL EPI PRN (02:50)
[2021-07-18] MEDS: SODIUM CHLORIDE 0.9% EPI PRN (02:50)
[2021-07-18] MEDS: ROPIVACAINE 0.5% EPI PRN (02:50)
[2021-07-18] MEDS: LACTATED RINGER'S 1,000 ML IV PRN (03:43)
[2021-07-18] MEDS: NALOXONE HCL 1 MG in SODIUM CHLORIDE 0.9% 1000ML 1,000 ML IV PRN (04:14)
[2021-07-18] MEDS ORDERED: BENZOCAINE 20% AER SPR 82.5 GM CAN EXT PRN (06:24)
[2021-07-18] MEDS ORDERED: HYDROCORTISONE ACETATE 25 MG SUPP PR PRN (06:24)
[2021-07-18] MEDS ORDERED: miSOPROStoL 200 MCG TAB PR ONE (06:24)
[2021-07-18] MEDS ORDERED: OXYTOCIN 30 UNITS/500 ML BAG IV PRN (06:24)
[2021-07-18] MEDS ORDERED: SUPERCREAM 0.870% 15 GM JAR EXT PRN (06:24)
[2021-07-18] MEDS ORDERED: bisacodyL 10 MG SUPP PR PRN (06:24)
[2021-07-18] MEDS ORDERED: ACETAMINOPHEN 325 MG TAB PO PRN (06:24)
[2021-07-18] MEDS ORDERED: DIPHTHERIA/TETANUS/PERTUSSIS 0.5 ML SYR/VIAL IM ONE (06:24)
[2021-07-18] MEDS ORDERED: METHYLERGONOVINE MALEATE 0.2 MG/ML AMP IM ONE (06:24)
[2021-07-18] MEDS ORDERED: miSOPROStoL 200 MCG TAB ONE (06:32)
[2021-07-18 06:47] LABS: Base Excess Cord Venous Blood -3.4 mEq/L (-7.7-1.9); Cord Venous Blood HCO3 23 mmol/L (18.4-26.8); Cord Venous Blood PCO2 48 mmHg (30.4-57.2); Cord Venous Blood PO2 28 mmHg (14.1-43.3); Cord Venous Blood pH 7.31 (7.20-7.44)
--- NOTE | 2021-07-18 08:17 | Anesthesia Procedure Note ---
Date of Service July 18, 2021 Anesthesia Post Epidural Note Vital Signs Vital Signs: Temp Pulse Resp BP Pulse Ox 36.6 C 79 14 136/62 95 07/18/21 08:00 07/18/21 08:11 07/18/21 08:00 07/18/21 08:01 07/18/21 08:11 Pain Intensity Lower Back: Pain Intensity: 0 Notes Mental Status: alert / awake / arousable and participated in evaluation Nausea / Vomiting: adequately controlled Pain: adequately controlled Airway Patency, RR, SpO2: stable & adequate BP & HR: stable & adequate Hydration State: stable & adequate Neuraxial Anesthesia: was administered and sensory block is resolving Anesthetic Complications: no major complications apparent and Pt Satisfied with anesthetic care Epidural: Removed without complications and With tip intact Notes: The patient is awake and comfortable. She is eating breakfast. Her itching has subsided so the naloxone gtt was stopped. Her SpO2 is 99 on 4 L oxygen by NC and was turned down to 2 L with the goal of weening it off today. She does have an occasional cough which is similar to a cough that she has had in the past and may be related to her asthma or her GERD.
--- NOTE | 2021-07-18 09:42 | Delivery Summary ---
DATE OF SERVICE: 07/18/2021 PROCEDURE: Normal spontaneous vaginal delivery with bilateral labial laceration repairs. SURGEON: Chandu Eugene MD. PREOPERATIVE DIAGNOSES: 1. Single intrauterine at 41 weeks, 0 days gestational age. 2. IVF . 3. Rh negative. 4. GBS positive. 5. Medication error complicating delivery. 6. Prolonged labor. POSTOPERATIVE DIAGNOSES: 1. Single intrauterine at 41 weeks, 0 days gestational age. 2. IVF . 3. Rh negative. 4. GBS positive. 5. Medication error complicating delivery. 6. Prolonged labor. 7. Status post procedure. ESTIMATED BLOOD LOSS: 500 mL. DRAINS: Straight cath at the completion of the case. COMPLICATIONS: None. FINDINGS: Viable male infant with weight and Apgars pending. INDICATIONS: The patient was admitted for induction of labor secondary to post- term . Please see prior notes for early hospital course and med complications, which prolonged labor. After oxytocin was restarted on 07/17/2021 around noon, the patient's Pitocin was titrated up. The patient slowly recovered from the medication overdose and ultimately reports that she was feeling fairly normal and having normal vital signs. The patient slowly progressed in labor over approximately 18-hour. After restarting the oxytocin to become complete-complete, +2 station, at which time she felt the urge to push. The patient had normal temperatures and no signs of chorioamnionitis throughout her labor course. The patient was treated for GBS throughout her labor with penicillin. DESCRIPTION OF PROCEDURE: The patient progressed to 10 cm dilated, 100% effaced, positive 2 station, pushed over intact perineum with epidural anesthesia and delivered a viable male , weight and Apgars as noted above. Head of the delivered in FATOUMATA position, restituted to left transverse. Nuchal x2 was noted, which was easily reduced. Body and shoulders quickly followed. had good tone, but was not spontaneously crying upon delivery. The cord was double clamped and cut. There was also noted to be maternal meconium. was taken to the waiting nursery staff and soon became vigorous. Cord segment cord blood was obtained. Attention was then turned to delivery of the placenta. The placenta delivered intact, 3-vessel cord, gentle cord traction. patient was noted to have uterine atony notes with 400-500mL of bleeding. Uterine message continued and patient given methergine in addition to already running pitocin. Bleeding quickly improved and 800mcg of cytotec placed MA after repair was complete. On inspection of the perineum, vagina, cervix, there was noted to be bilateral periurethral lacerations, repaired with interrupted stitch of 3-0 Vicryl. Needle, sponge, and instrument counts were correct at the completion of the case with mother and were stable in the immediate post-delivery period. was taken to the nursery for some supplemental oxygen, was otherwise stable. Job ID: [id number] [facility]
[2021-07-18] MEDS: DOCUSATE SODIUM 100 MG CAP PO SCH (20:38)
[2021-07-18] MEDS: IBUPROFEN 600 MG TAB PO PRN (20:38)
[2021-07-19 07:00] LABS: Hematocrit (blood only) 29.1 % (37-47); Hemoglobin 9.7 g/dL (12.0-16.0); Mean Corpuscular Hemoglobin 30.7 pg (25-34); Mean Corpuscular Hgb Conc 33.3 g/dL (32-36); Mean Corpuscular Volume 92.1 fL (80-100); Mean Platelet Volume 10.4 fL (7.4-10.4); Platelet Count 151 K/uL (130-400); RDW Coefficient of Variation 14.5 % (11.5-14.5); RDW Standard Deviation 48.8 fL (36.4-46.3); Red Blood Count 3.16 M/uL (4.2-5.4); White Blood Count 9.31 K/uL (4.8-10.8)
--- NOTE | 2021-07-19 08:12 | Obstetrical Progress Note ---
Date of Service July 19, 2021 Assessment & Plan (1) Encounter for care and examination after delivery: Plan: 36yo PPD 1 s/p at 41 weeks complicated by bilateral periurethral laceration, epidural affected (increased morphine dose in bag secondary to medical error) -multiple narcan doses given yesterday; Emilie is progressing well -flores removed yesterday, voiding well without complaint -Continue routine care -Vitals reviewed- HDS, afebrile, saturating well on room air -GBS positive, treated adequately -Encourage ambulation, regular diet -Pain control with ibuprofen, acetaminophen PRN -Trial today, >24 hours since last narcan dose; cont. to monitor -Hgb 9.7 -F/u in 6 weeks with OB after discharge Admission and Anticipated Discharge Date Admission Date: July 16, 2021 Supervising Physician Co-Signing Physician Notes Resident Physician Supervision Note: I interviewed and examined the patient. Discussed with Dr. Rolle and agree with findings and plan as documented in the note. Any exceptions or clarifications are listed here: Patient is just now 24 hours after coming off the narcan drip and from delivery. Will start attempting to breast feed today. Will need continued montioring given the narcotics issue with her epidural. She has voided well with no evidence of urinary retention and very small pvr. Will continue to monitor closely. Documented By: Chacha Terry MD, FACOG Subjective Ambulation: yes Voiding: yes, flores removed yesterday Passing Gas: yes BM: yes Diet Tolerance: regular Lochia: small Feeding Type: pumping; will try to breastfeed today since 24 hours past narcan dose Current Pain Level(1-10): 0 Review of Systems Review of Systems: +mild chills and shakes. Denies fevers. +chronic cough secondary to asthma. Denies dyspnea. Denies chest pain. Denies breast pain or discharge. Denies dysuria. +intermittent mild headache. Denies nausea, vomiting. Physical Exam Physical Exam: General: Alert, oriented, no acute distress Cardiac: Regular rate and rhythm. No murmurs appreciated. Respiratory: Clear to auscultation, symmetric chest rise and fall. No wheezes or crackles. No increased work of breathing or accessory muscle use Abdomen: Soft, nontender. Fundus firm and palpable at 1 cm below umbilicus. No guarding or rebound. Extremities: Warm, dry. No lower extremity edema, erythema or swelling. Results & Data ([facility]) Vital Signs (Past 12 Hours) Vital Signs Temp Pulse Resp BP Pulse Ox 07/19/21 05:00 36.3 C L 87 18 125/78 99 07/19/21 00:55 36.4 C L 99 H 20 115/72 97 Resident Activity Tracking Resident Involvement: Resident Care Provided Care Provided: OB Delivery
[2021-07-19] MEDS: PRENATAL VITAMIN 1 TAB PO SCH ×2 (08:38→12:22)
[2021-07-19] MEDS: FERROUS SULFATE 325 MG TAB PO SCH ×2 (08:38→12:22)
[2021-07-19] MEDS: IBUPROFEN 600 MG TAB PO PRN ×2 (08:38→20:29)
[2021-07-19] MEDS: DOCUSATE SODIUM 100 MG CAP PO SCH ×3 (08:39→20:30)
[2021-07-19] MEDS: FAMOTIDINE 20 MG TAB PO SCH ×2 (08:39→12:22)
[2021-07-19] MEDS ORDERED: bisacodyL 5 MG TABEC PO SCH (20:00)
[2021-07-20 07:45] LABS: Hematocrit (blood only) 29.9 % (37-47); Hemoglobin 10.1 g/dL (12.0-16.0)
--- NOTE | 2021-07-20 08:21 | Obstetrical Progress Note ---
Date of Service July 20, 2021 Assessment & Plan (1) Encounter for care and examination after delivery: stable, routine care. f/u 6wk pp. instructions reviewed. rh neg, had rhogam. RI. Breast feeding. As long as patient feels going well, can go home. Day #:: 2 Subjective Ambulation: ambulating normally Voiding: no voiding problems Passing Gas:: Yes Diet Tolerance:: regular diet Lochia:: Small Feeding Type:: breast feeding denies pain, working on baby to breast, baby feeds well. Constitutional: + as per Subjective / HPI Physical Exam Constitutional WD/WN, vitals as above Respiratory normal respiratory effort, lungs clear to auscultation Cardiovascular Rate/Rhythm: regular rate and regular rhythm Gastrointestinal (Abdomen) Inspection/Auscultation: abdomen normal to inspection Percussion/Palpation: abdomen soft fundus firm 2 cm below umbilicus Musculoskeletal nt calves no edema Neurologic grossly normal Psychiatric A+Ox3, euthymic affect Results & Data ([facility]) Vital Signs (Past 12 Hours) Vital Signs Temp Pulse Resp BP Pulse Ox 07/20/21 00:00 97.5 F L 72 16 128/81 97
[2021-07-20] MEDS: DOCUSATE SODIUM 100 MG CAP PO SCH (08:38)
[2021-07-20] MEDS: IBUPROFEN 600 MG TAB PO PRN (08:38)
[2021-07-20] MEDS: PRENATAL VITAMIN 1 TAB PO SCH (08:38)
[2021-07-20] MEDS: FAMOTIDINE 20 MG TAB PO SCH (08:38)
[2021-07-20] MEDS: FERROUS SULFATE 325 MG TAB PO SCH (08:38)
== END 2021-07-20 13:59 | disposition home or self-care (01) | DRG 807 ==
LOC: 4S1 07:45 → 4S2 07-18 12:57

== ENCOUNTER 2025-05-22 13:22 | Inpatient (IN) ==
[2025-05-22] MEDS ORDERED: LIDOCAINE 1% LOCAL 20 ML VIAL INFIL PRN (13:26)
[2025-05-22] MEDS ORDERED: OXYTOCIN 30 UNITS/NSS 30 UNITS/500 ML BAG IV PRN (13:26)
--- NOTE | 2025-05-22 13:46 | History & Physical Report ---
Date of Service May 22, 2025 Assessment & Plan (1) Normal labor: Plan: Pt is a 39yo at 40w 6d presenting for induction of labor. IVF . Routine labs ordered Pitocin ordered Epidural placement on demand Monitor tracing Expectant management for labor Will need Rhogam due to Rh- status Hepatitis B vaccine advised outpatient with PCP (2) resulting from in vitro fertilization, antepartum: (3) Need for rhogam due to Rh negative mother: Admission and Anticipated Discharge Date Admission Date: May 22, 2025 History of Present Illness Chief Complaint: IOL Primary Care Provider: Batsheva Nolan DO Pt is a 39yo female currently at 40w 6d with an LULU 05/16/2025 who is here for induction of labor. IVF . AMA. Not feeling contractions; adequate movement; no fluid loss; no bloody show Had regular appointments with OB. OB Labs: Blood Type O Negative 10/05/24 Antibody Screen NEGATIVE 02/23/25 Hgb 11.2 g/dl (12.0-16.0) L 02/23/25 Hct 33.9 % (37.0-47.0) L 02/23/25 MCV 86.3 fL (80.0-100.0) 10/05/24 Plt Count 260 K/uL (130-400) 10/05/24 Rubella IgG Antibody Immune (Immune) 10/05/24 RPR Nonreactive (Nonreactive) 12/16/20 Treponema pallidum Ab Negative (Negative) 02/23/25 Hep Bs Antigen Negative (Negative) 10/05/24 Hepatitis C Antibody Negative (Negative) 10/05/24 HIV 1&2 Ab/P24 Ag 4thGn Negative (Negative) 10/05/24 Glucose 1 Hr 50 gm 112 mg/dl (70-130) 02/23/25 Chlamydia trachomatis RNA Not Detected (NotDetected) 10/05/24 Neisseria gonorrhoeae RNA Not Detected (NotDetected) 10/05/24 Thyroid Stimulating Hormone (TSH) 1.275 uIu/ml (0.300-4.500) 06/21/22 Declined genetics GBS Negative Review of Systems : Denies fever, chills, sweats Denies shortness of breath, difficulty breathing, chest pain, palpitations, chest pressure. Denies dysuria. Denies headache or changes in vision. Allergies Allergy/AdvReac Type Severity Reaction Status Date / Time No Known Allergies Allergy Verified 05/22/25 13:39 Home Medications Medication Instructions Recorded Confirmed Type vits no.133-ferrous 1 tab PO DAILY 03/02/22 05/22/25 History fumarate 28 mg-folic acid 800 mcg tablet () famotidine 20 mg tablet (Pepcid) 20 mg PO BID PRN Acid Reflux 05/22/25 05/22/25 History Patient History Medical History (Updated 05/22/25 @ 13:54 by Otis Quiñones MD) Pruritus of Asthma GBS (group B Streptococcus carrier), +RV culture, currently GBS neg Heart murmur History of chicken pox Surgical History S/P inguinal hernia repair S/P wisdom tooth extraction Family History Grandmother (Maternal) Ovarian cancer Grandfather (Paternal) Diabetes Hypertension Grandmother (Paternal) Diabetes Father Hypertension Kidney stone Mother Pituitary tumor Denies family history of Breast cancer Colorectal cancer Social History Smoking Status: Never smoker Do You Dip or Chew Tobacco: No; Hx Alcohol Use: No Hx Substance Use: No Preferred Language: [place] Communication Ability: Effective 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 Skin: warm, dry, intact HEENT: NC/AT, anicteric sclera, conjunctiva without injection Heart: S1/S2 heard, regular, no m/r/g Lungs: equal air entry bilaterally, no rales/rhonchi/wheezes Abd: Normoactive BS, soft, NT/ND, gravid uterus Ext: warm, no clubbing/cyanosis or edema Neuro: nonfocal, speech intact, no facial droop, moving all extremities on command : FHR baseline 145, moderate variability, accelerations present, decelerations absent. Category 1 tracing. Results & Data Vital Signs (Past 12 Hours) Vital Signs Pulse BP 05/22/25 13:30 74 133/76 Resident Activity Tracking Resident Involvement: Resident Care Provided Care Provided: OB Delivery
[2025-05-22] MEDS: LACTATED RINGER'S 1,000 ML IV PRN (14:02)
[2025-05-22] MEDS: OXYTOCIN 30 UNITS/NSS 30 UNITS/500 ML BAG IV PRN (14:03)
[2025-05-22 14:37] LABS: Hematocrit (blood only) 34.2 % (37.0-47.0); Hemoglobin 11.1 g/dl (12.0-16.0); Mean Corpuscular Hemoglobin 28.3 pg (25.0-34.0); Mean Corpuscular Volume 87.2 fL (80.0-100.0); Platelet Count 203 K/uL (130-400); RDW Standard Deviation 46.3 fL (36.4-46.3); Red Blood Count 3.92 M/uL (4.20-5.40); White Blood Count 8.59 K/ul (4.8-10.8)
--- NOTE | 2025-05-22 19:00 | Anesthesiology Consultation ---
Date of Service May 22, 2025 Assessment & Plan (1) Encounter for pre-operative examination: Chart Review Chart Review: Acceptable Risk for Labor Epidural History Height/Weight Height: 5 ft 10 in Weight: 95.708 kg Allergies Allergy/AdvReac Type Severity Reaction Status Date / Time No Known Allergies Allergy Verified 05/22/25 13:39 Medications Home Medications Medication Instructions Recorded Confirmed Last Taken vits no.133-ferrous 1 tab PO DAILY 03/02/22 05/22/25 05/22/25 07:00 fumarate 28 mg-folic acid 800 mcg tablet () famotidine 20 mg tablet (Pepcid) 20 mg PO BID PRN Acid Reflux 05/22/25 05/22/25 05/21/25 20:00 Active Medications Generic Name Dose Route Start Last Admin Trade Name Freq PRN Reason Stop Dose Admin Oxytocin 30 units in 500 mls @ 12 mls/hr 05/22/25 13:26 05/22/25 17:30 Pitocin 30 Units/Nss IV 05/24/25 13:25 0.72 units/hr .Q24H PRN 12 mls/hr Labor Induction/Augmentation Titration Protocol 0.72 UNITS/HR Lactated Ringer's 1,000 mls @ 125 mls/hr 05/22/25 13:26 05/22/25 14:02 Lr IV 05/24/25 13:25 125 mls/hr .Q8H PRN Administration L&D Protocol Protocol Past Medical History Medical History Pruritus of Asthma GBS (group B Streptococcus carrier), +RV culture, currently GBS neg Heart murmur History of chicken pox Past Family History Family History Grandmother (Maternal) Ovarian cancer Grandfather (Paternal) Diabetes Hypertension Grandmother (Paternal) Diabetes Father Hypertension Kidney stone Mother Pituitary tumor Denies family history of Breast cancer Colorectal cancer Past Surgical History Surgical History S/P inguinal hernia repair S/P wisdom tooth extraction Social History Smoking Status: Never smoker Do You Dip or Chew Tobacco: No Hx Alcohol Use: No Hx Substance Use: No Physical Exam Vital Signs Last Vital Signs Temp 37.1 C 05/22/25 17:30 Pulse 69 05/22/25 18:31 Resp 20 05/22/25 13:30 BP 172/89 H 05/22/25 18:31 Testing Laboratory Results 05/22/25 14:10
[2025-05-22] MEDS ORDERED: NALOXONE HCL 1 MG in SODIUM CHLORIDE 0.9% 1,000 ML IV PRN (19:44)
[2025-05-22] MEDS ORDERED: BUPIVACAINE 0.25% PF 30 ML VIAL EPI PRN (19:44)
[2025-05-22] MEDS ORDERED: SODIUM CHLORIDE 0.9% PF INJ 10 ML VIAL EPI PRN (19:44)
[2025-05-22] MEDS ORDERED: fentANYL 2 MCG/ML BUPIVacaine 0.125%-NSS 100ML BAG EPI PRN (19:44)
[2025-05-22] MEDS ORDERED: LIDOCAINE 2% MPF LOCAL 5 ML VIAL EPI PRN (19:44)
[2025-05-22] MEDS ORDERED: ONDANSETRON INJ 2 MG/ML 2 ML VIAL IV PRN (19:44)
[2025-05-22] MEDS ORDERED: NALOXONE HCL 0.4 MG/1 ML VIAL/CARP IV PRN (19:44)
[2025-05-22] MEDS ORDERED: ROPIVACAINE 0.5% PF 5 MG/ML 20 ML VIAL EPI PRN (19:44)
[2025-05-22] MEDS: fentANYL 2 MCG/ML BUPIVacaine 0.125%-NSS 100ML BAG ONE ×2 (19:47→20:29)
[2025-05-22] MEDS: BUPIVACAINE 0.25% PF 30 ML VIAL ONE ×2 (19:48→20:29)
[2025-05-22] MEDS: SODIUM CHLORIDE 0.9% PF INJ 10 ML VIAL ONE ×2 (20:29→20:30)
[2025-05-22] MEDS: LIDOCAINE 2%/EPINEPHRINE 1:200,000 20 ML PF ONE ×2 (20:29→20:30)
[2025-05-22] MEDS: SODIUM CHLORIDE 0.9% PF INJ 10 ML VIAL EPI STA (20:32)
[2025-05-22] MEDS: LIDOCAINE 2%/EPINEPHRINE 1:200,000 20 ML PF EPI STA (20:32)
[2025-05-22] MEDS: BUPIVACAINE 0.25% PF 30 ML VIAL EPI STA (20:33)
--- NOTE | 2025-05-22 22:35 | Delivery Summary ---
Vaginal Delivery Summary Date of Service May 22, 2025 Vaginal Delivery Summary DIAGNOSES: 1. Bobo intrauterine at 40w6d gestation. 2. Induction of Labor. 3. Group B Streptococcus Neg. PROCEDURE: Spontaneous vaginal delivery without laceration. SURGEON: Loly Degroot MD. SBA BUSINESS DEVELOPMENT OFFICER: None. QUANTITATIVE BLOOD LOSS: 600 mL. COMPLICATIONS: None. PLACENTA: Spontaneous and intact with a 3-vessel cord. DISPOSITION: Stable to labor and delivery. DESCRIPTION: The patient pushed well and brought the head to in OA position. The infant's head was allowed to deliver with contraction force and no further active pushing, with the perineum protected during this time. There was 1 loop of nuchal cord reduced at the perineum. The right shoulder was anterior. The shoulders and body delivered after Yenni and Suprapubic Pressure were employed to manage shoulder dystocia. The was placed on the maternal abdomen. The cord was doubly clamped by the MD and then cut by the FOB. The placenta delivered spontaneously and was noted to be intact and with a 3VC. The cervix, vagina and perineum were examined and were found to be without defect requiring repair. The fundus was firm and lochia minimal immediately after delivery. [facility] Vaginal Delivery Charge Vaginal Delivery Codes: 98007 global code for the antepartum, delivery, and post-
[2025-05-22] MEDS ORDERED: BENZOCAINE 20% SPRY 85 APPLN/85 GM CAN EXT PRN (22:42)
[2025-05-22] MEDS ORDERED: ACETAMINOPHEN 325 MG TAB PO PRN (22:42)
[2025-05-22] MEDS ORDERED: DIPHTHER/TETAN/PERTUS Vaccine (Tdap, Adol/Adult) 0.5mL IM ONE (22:42)
[2025-05-22] MEDS ORDERED: HYDROCORTISONE ACETATE 25 MG SUPP PR PRN (22:42)
[2025-05-22] MEDS: FAMOTIDINE 20 MG TAB PO PRN (22:58)
[2025-05-22] MEDS: CALCIUM CARBONATE 500 MG CHEWABLE TAB PO PRN (23:28)
[2025-05-23] MEDS: OXYTOCIN 30 UNITS/NSS 30 UNITS/500 ML BAG IV PRN (00:13)
[2025-05-23 01:27] LABS: Hematocrit (blood only) 30.7 % (37.0-47.0); Hemoglobin 10.1 g/dl (12.0-16.0)
[2025-05-23] MEDS ORDERED: SODIUM CHLORIDE 0.9% 100 ML IV PRN (04:41)
[2025-05-23] MEDS: AMPICILLIN/SULBACTAM SOD 3,000 MG/100 ML BAG IV STA (05:34)
--- NOTE | 2025-05-23 06:34 | Obstetrical Progress Note ---
Date of Service May 23, 2025 Assessment & Plan (1) care and examination: Plan: 39yo post- day--1 s/p Fells well today Continue post- care Encourage ambulation and Pain controlled Vital Signs stable Admission and Anticipated Discharge Date Admission Date: May 22, 2025 Supervising Physician Co-Signing Physician Notes Resident Physician Supervision Note: I interviewed and examined the patient. Discussed with Dr. Quiñones and agree with findings and plan as documented in the note. Any exceptions or clarifications are listed here: [ ] Documented By: Loly Degroot MD, FACOG, MSCP Subjective 39yo post- day 1 s/p Ambulation: limited Voiding: No voiding problems Passing Gas:: No Diet Tolerance:: regular diet Lochia:: Small Feeding Type:: Current Pain Level: 0/10 Resting comfortably this AM in NAD. Denies FROST, CP, SOB, N/V/D, LE pain/swelling. Physical Exam Physical Exam: General: patient resting comfortably, NAD, non-toxic in appearance, answers questions appropriately Skin: warm, dry, intact Heart: S1/S2 heard, regular, no m/r/g Lungs: equal air entry bilaterally, no rales/rhonchi/wheezes Abd: Normoactive BS, soft, NT/ND, uterine fundus firm below umbilicus Ext: warm, no clubbing/cyanosis or edema, Biju's neg Neuro: nonfocal, patient AAOx4, speech intact, no facial droop, moving all extremities on command Results & Data Vital Signs (Past 12 Hours) Vital Signs Temp Pulse Pulse Resp BP BP Pulse Ox 05/23/25 04:51 36.9 C 76 18 117/69 98 05/23/25 03:36 75 99 05/23/25 03:31 67 95 05/23/25 03:26 95 05/23/25 03:26 74 05/23/25 03:26 69 132/61 05/23/25 03:25 71 94 05/23/25 03:20 76 95 05/23/25 03:15 71 97 05/23/25 03:10 71 141/61 H 95 05/23/25 03:05 80 96 05/23/25 03:00 79 95 05/23/25 02:55 80 149/72 H 98 05/23/25 02:50 87 96 05/23/25 02:45 74 96 05/23/25 02:43 37.8 C H 18 05/23/25 02:40 96 05/23/25 02:40 94 H 05/23/25 02:40 99 H 139/65 05/23/25 02:35 91 H 97 05/23/25 02:30 82 96 05/23/25 02:25 83 132/63 96 05/23/25 02:23 71 94 05/23/25 02:20 98 H 95 05/23/25 02:15 80 96 05/23/25 02:10 96 05/23/25 02:10 86 05/23/25 02:10 82 127/60 05/23/25 02:05 82 96 05/23/25 02:00 85 96 05/23/25 01:55 87 130/61 96 05/23/25 01:50 92 H 96 05/23/25 01:45 81 95 05/23/25 01:40 82 131/60 96 05/23/25 01:35 84 97 05/23/25 01:30 80 97 05/23/25 01:25 91 H 133/75 96 05/23/25 01:20 94 H 96 05/23/25 01:15 85 96 05/23/25 01:10 86 134/64 96 05/23/25 01:05 86 98 05/23/25 01:00 84 96 05/23/25 00:55 76 135/64 98 05/23/25 00:50 90 98 05/23/25 00:45 83 97 05/23/25 00:41 78 129/61 05/23/25 00:40 84 96 05/23/25 00:35 76 98 05/23/25 00:30 87 98 05/23/25 00:25 87 97 05/23/25 00:20 81 98 05/23/25 00:15 76 97 05/23/25 00:10 79 128/62 98 05/23/25 00:05 86 96 05/23/25 00:00 91 H 96 05/22/25 23:56 94 05/22/25 23:56 100 H 05/22/25 23:55 96 05/22/25 23:55 105 H 05/22/25 23:50 98 05/22/25 23:50 80 05/22/25 23:45 97 05/22/25 23:45 92 H 05/22/25 23:41 95 H 05/22/25 23:41 144/68 H 05/22/25 23:40 94 05/22/25 23:40 96 H 05/22/25 23:35 98 05/22/25 23:35 82 05/22/25 23:30 97 05/22/25 23:30 86 05/22/25 23:26 112 H 05/22/25 23:26 149/67 H 05/22/25 23:25 97 05/22/25 23:25 90 05/22/25 23:23 93 05/22/25 23:23 74 05/22/25 23:20 95 05/22/25 23:20 69 05/22/25 23:15 98 05/22/25 23:15 67 05/22/25 23:10 96 05/22/25 23:10 85 05/22/25 23:10 162/119 H 05/22/25 23:08 91 05/22/25 23:08 97 H 05/22/25 23:06 75 05/22/25 23:06 173/91 H 05/22/25 23:05 96 05/22/25 23:05 72 05/22/25 23:00 98 05/22/25 23:00 88 05/22/25 22:55 99 05/22/25 22:55 94 H 05/22/25 22:53 93 05/22/25 22:53 92 H 05/22/25 22:50 100 05/22/25 22:50 88 05/22/25 22:47 92 05/22/25 22:47 104 H 05/22/25 22:45 96 05/22/25 22:45 98 H 05/22/25 22:41 92 05/22/25 22:41 94 H 05/22/25 22:40 98 05/22/25 22:40 95 H 05/22/25 22:40 184/115 H 05/22/25 22:35 99 05/22/25 22:35 116 H 05/22/25 22:30 99 05/22/25 22:30 84 05/22/25 22:25 99 10/21/25 22:25 89 05/22/25 22:25 170/114 H 05/22/25 22:20 100 05/22/25 22:20 93 H 05/22/25 22:15 99 05/22/25 22:15 94 H 05/22/25 22:13 94 05/22/25 22:13 82 05/22/25 22:10 100 05/22/25 22:10 75 05/22/25 22:05 100 05/22/25 22:05 73 05/22/25 22:04 66 05/22/25 22:04 164/70 H 05/22/25 22:01 71 05/22/25 22:01 153/70 H 05/22/25 22:00 99 05/22/25 22:00 72 05/22/25 21:56 70 05/22/25 21:56 181/88 H 05/22/25 21:55 100 05/22/25 21:55 83 05/22/25 21:50 99 05/22/25 21:50 71 05/22/25 21:45 99 05/22/25 21:45 67 05/22/25 21:41 71 05/22/25 21:41 175/81 H 05/22/25 21:40 98 05/22/25 21:40 71 05/22/25 21:35 99 05/22/25 21:35 72 05/22/25 21:30 98 05/22/25 21:30 95 H 05/22/25 21:26 77 05/22/25 21:26 129/84 05/22/25 21:25 99 05/22/25 21:25 80 05/22/25 21:20 98 05/22/25 21:20 66 05/22/25 21:15 98 05/22/25 21:15 86 05/22/25 21:10 99 05/22/25 21:10 72 05/22/25 21:09 65 05/22/25 21:09 143/73 H 05/22/25 21:07 71 05/22/25 21:07 147/75 H 05/22/25 21:05 98 05/22/25 21:05 72 05/22/25 21:05 141/69 H 05/22/25 21:03 74 05/22/25 21:03 146/72 H 05/22/25 21:01 83 05/22/25 21:01 145/66 H 05/22/25 21:00 98 05/22/25 21:00 82 05/22/25 20:59 64 05/22/25 20:59 132/65 05/22/25 20:57 72 05/22/25 20:57 131/63 05/22/25 20:55 98 05/22/25 20:55 74 05/22/25 20:55 74 05/22/25 20:55 155/64 H 05/22/25 20:53 64 05/22/25 20:53 138/65 05/22/25 20:51 56 L 05/22/25 20:51 128/75 05/22/25 20:50 97 05/22/25 20:50 56 L 05/22/25 20:49 55 L 05/22/25 20:49 125/67 05/22/25 20:47 64 05/22/25 20:47 128/71 05/22/25 20:45 18 05/22/25 20:45 18 05/22/25 20:45 99 05/22/25 20:45 79 05/22/25 20:45 66 05/22/25 20:45 140/71 05/22/25 20:43 54 L 05/22/25 20:43 137/70 05/22/25 20:41 58 L 05/22/25 20:41 141/73 H 05/22/25 20:40 96 05/22/25 20:40 60 05/22/25 20:39 58 L 05/22/25 20:39 144/75 H 05/22/25 20:37 56 L 05/22/25 20:37 134/68 05/22/25 20:35 96 05/22/25 20:35 53 L 05/22/25 20:35 62 05/22/25 20:35 133/67 05/22/25 20:33 57 L 05/22/25 20:33 132/72 05/22/25 20:31 63 05/22/25 20:31 125/69 05/22/25 20:30 96 05/22/25 20:30 67 05/22/25 20:29 53 L 05/22/25 20:29 130/73 05/22/25 20:27 63 05/22/25 20:27 124/72 05/22/25 20:25 96 05/22/25 20:25 63 05/22/25 20:25 57 L 05/22/25 20:25 126/72 05/22/25 20:23 59 L 05/22/25 20:23 127/74 05/22/25 20:21 67 05/22/25 20:21 122/73 05/22/25 20:20 96 05/22/25 20:20 64 05/22/25 20:20 65 05/22/25 20:20 133/62 05/22/25 20:17 62 05/22/25 20:17 134/63 05/22/25 20:15 18 05/22/25 20:15 18 05/22/25 20:15 97 05/22/25 20:15 67 05/22/25 20:15 66 05/22/25 20:15 133/68 05/22/25 20:13 67 05/22/25 20:13 134/70 05/22/25 20:11 69 05/22/25 20:11 134/68 05/22/25 20:10 97 05/22/25 20:10 72 05/22/25 20:09 64 05/22/25 20:09 136/92 05/22/25 20:07 71 05/22/25 20:07 120/71 05/22/25 20:05 18 05/22/25 20:05 18 05/22/25 20:05 97 05/22/25 20:05 57 L 05/22/25 20:05 55 L 05/22/25 20:05 119/70 05/22/25 20:03 57 L 05/22/25 20:03 119/74 05/22/25 20:01 65 05/22/25 20:01 126/80 05/22/25 20:00 98 05/22/25 20:00 53 L 05/22/25 19:59 75 05/22/25 19:59 127/65 05/22/25 19:57 61 05/22/25 19:57 122/65 05/22/25 19:56 37 C 63 18 119/74 98 05/22/25 19:56 37.0 C 05/22/25 19:55 18 05/22/25 19:55 18 05/22/25 19:55 97 05/22/25 19:55 67 05/22/25 19:55 125/62 05/22/25 19:53 64 05/22/25 19:53 122/60 05/22/25 19:51 71 05/22/25 19:51 130/61 05/22/25 19:50 18 05/22/25 19:50 18 05/22/25 19:50 97 05/22/25 19:50 68 05/22/25 19:49 62 05/22/25 19:49 128/60 05/22/25 19:47 69 05/22/25 19:47 130/61 05/22/25 19:45 18 05/22/25 19:45 18 05/22/25 19:45 98 05/22/25 19:45 63 05/22/25 19:45 67 05/22/25 19:45 147/63 H 05/22/25 19:43 68 05/22/25 19:43 149/68 H 05/22/25 19:41 68 05/22/25 19:41 148/75 H 05/22/25 19:39 62 05/22/25 19:39 162/82 H 05/22/25 19:36 57 L 05/22/25 19:36 160/80 H 05/22/25 19:34 98 05/22/25 19:34 77 05/22/25 19:29 99 05/22/25 19:29 70 05/22/25 19:24 100 05/22/25 19:24 58 L 05/22/25 19:19 100 05/22/25 19:19 63 05/22/25 19:14 100 05/22/25 19:14 73 05/22/25 18:31 69 05/22/25 18:31 172/89 H O2 Del Method 05/23/25 04:51 Room Air 05/23/25 03:36 05/23/25 03:31 05/23/25 03:26 05/23/25 03:26 05/23/25 03:26 05/23/25 03:25 05/23/25 03:20 05/23/25 03:15 05/23/25 03:10 05/23/25 03:05 05/23/25 03:00 05/23/25 02:55 05/23/25 02:50 05/23/25 02:45 05/23/25 02:43 05/23/25 02:40 05/23/25 02:40 05/23/25 02:40 05/23/25 02:35 05/23/25 02:30 05/23/25 02:25 05/23/25 02:23 05/23/25 02:20 05/23/25 02:15 05/23/25 02:10 05/23/25 02:10 05/23/25 02:10 05/23/25 02:05 05/23/25 02:00 05/23/25 01:55 05/23/25 01:50 05/23/25 01:45 05/23/25 01:40 05/23/25 01:35 05/23/25 01:30 05/23/25 01:25 05/23/25 01:20 05/23/25 01:15 05/23/25 01:10 05/23/25 01:05 05/23/25 01:00 05/23/25 00:55 05/23/25 00:50 05/23/25 00:45 05/23/25 00:41 05/23/25 00:40 05/23/25 00:35 05/23/25 00:30 05/23/25 00:25 05/23/25 00:20 05/23/25 00:15 05/23/25 00:10 05/23/25 00:05 05/23/25 00:00 05/22/25 23:56 05/22/25 23:56 05/22/25 23:55 05/22/25 23:55 05/22/25 23:50 05/22/25 23:50 05/22/25 23:45 05/22/25 23:45 05/22/25 23:41 05/22/25 23:41 05/22/25 23:40 05/22/25 23:40 05/22/25 23:35 05/22/25 23:35 05/22/25 23:30 05/22/25 23:30 05/22/25 23:26 05/22/25 23:26 05/22/25 23:25 05/22/25 23:25 05/22/25 23:23 05/22/25 23:23 05/22/25 23:20 05/22/25 23:20 05/22/25 23:15 05/22/25 23:15 05/22/25 23:10 05/22/25 23:10 05/22/25 23:10 05/22/25 23:08 05/22/25 23:08 05/22/25 23:06 05/22/25 23:06 05/22/25 23:05 05/22/25 23:05 05/22/25 23:00 05/22/25 23:00 05/22/25 22:55 05/22/25 22:55 05/22/25 22:53 05/22/25 22:53 05/22/25 22:50 05/22/25 22:50 05/22/25 22:47 05/22/25 22:47 05/22/25 22:45 05/22/25 22:45 05/22/25 22:41 05/22/25 22:41 05/22/25 22:40 05/22/25 22:40 05/22/25 22:40 05/22/25 22:35 05/22/25 22:35 05/22/25 22:30 05/22/25 22:30 05/22/25 22:25 05/22/25 22:25 05/22/25 22:25 05/22/25 22:20 05/22/25 22:20 05/22/25 22:15 05/22/25 22:15 05/22/25 22:13 05/22/25 22:13 05/22/25 22:10 05/22/25 22:10 05/22/25 22:05 05/22/25 22:05 05/22/25 22:04 05/22/25 22:04 05/22/25 22:01 05/22/25 22:01 05/22/25 22:00 05/22/25 22:00 05/22/25 21:56 05/22/25 21:56 05/22/25 21:55 05/22/25 21:55 05/22/25 21:50 05/22/25 21:50 05/22/25 21:45 05/22/25 21:45 05/22/25 21:41 05/22/25 21:41 05/22/25 21:40 05/22/25 21:40 05/22/25 21:35 05/22/25 21:35 05/22/25 21:30 05/22/25 21:30 05/22/25 21:26 05/22/25 21:26 05/22/25 21:25 05/22/25 21:25 05/22/25 21:20 05/22/25 21:20 05/22/25 21:15 05/22/25 21:15 05/22/25 21:10 05/22/25 21:10 05/22/25 21:09 05/22/25 21:09 05/22/25 21:07 05/22/25 21:07 05/22/25 21:05 05/22/25 21:05 05/22/25 21:05 05/22/25 21:03 05/22/25 21:03 05/22/25 21:01 05/22/25 21:01 05/22/25 21:00 05/22/25 21:00 05/22/25 20:59 05/22/25 20:59 05/22/25 20:57 05/22/25 20:57 05/22/25 20:55 05/22/25 20:55 05/22/25 20:55 05/22/25 20:55 05/22/25 20:53 05/22/25 20:53 05/22/25 20:51 05/22/25 20:51 05/22/25 20:50 05/22/25 20:50 05/22/25 20:49 05/22/25 20:49 05/22/25 20:47 05/22/25 20:47 05/22/25 20:45 05/22/25 20:45 05/22/25 20:45 05/22/25 20:45 05/22/25 20:45 05/22/25 20:45 05/22/25 20:43 05/22/25 20:43 05/22/25 20:41 05/22/25 20:41 05/22/25 20:40 05/22/25 20:40 05/22/25 20:39 05/22/25 20:39 05/22/25 20:37 05/22/25 20:37 05/22/25 20:35 05/22/25 20:35 05/22/25 20:35 05/22/25 20:35 05/22/25 20:33 05/22/25 20:33 05/22/25 20:31 05/22/25 20:31 05/22/25 20:30 05/22/25 20:30 05/22/25 20:29 05/22/25 20:29 05/22/25 20:27 05/22/25 20:27 05/22/25 20:25 05/22/25 20:25 05/22/25 20:25 05/22/25 20:25 05/22/25 20:23 05/22/25 20:23 05/22/25 20:21 05/22/25 20:21 05/22/25 20:20 05/22/25 20:20 05/22/25 20:20 05/22/25 20:20 05/22/25 20:17 05/22/25 20:17 05/22/25 20:15 05/22/25 20:15 05/22/25 20:15 05/22/25 20:15 05/22/25 20:15 05/22/25 20:15 05/22/25 20:13 05/22/25 20:13 05/22/25 20:11 05/22/25 20:11 05/22/25 20:10 05/22/25 20:10 05/22/25 20:09 05/22/25 20:09 05/22/25 20:07 05/22/25 20:07 05/22/25 20:05 05/22/25 20:05 05/22/25 20:05 05/22/25 20:05 05/22/25 20:05 05/22/25 20:05 05/22/25 20:03 05/22/25 20:03 05/22/25 20:01 05/22/25 20:01 05/22/25 20:00 05/22/25 20:00 05/22/25 19:59 05/22/25 19:59 05/22/25 19:57 05/22/25 19:57 05/22/25 19:56 05/22/25 19:56 05/22/25 19:55 05/22/25 19:55 05/22/25 19:55 05/22/25 19:55 05/22/25 19:55 05/22/25 19:53 05/22/25 19:53 05/22/25 19:51 05/22/25 19:51 05/22/25 19:50 05/22/25 19:50 05/22/25 19:50 05/22/25 19:50 05/22/25 19:49 05/22/25 19:49 05/22/25 19:47 05/22/25 19:47 05/22/25 19:45 05/22/25 19:45 05/22/25 19:45 05/22/25 19:45 05/22/25 19:45 05/22/25 19:45 05/22/25 19:43 05/22/25 19:43 05/22/25 19:41 05/22/25 19:41 05/22/25 19:39 05/22/25 19:39 05/22/25 19:36 05/22/25 19:36 05/22/25 19:34 05/22/25 19:34 05/22/25 19:29 05/22/25 19:29 05/22/25 19:24 05/22/25 19:24 05/22/25 19:19 05/22/25 19:19 05/22/25 19:14 05/22/25 19:14 05/22/25 18:31 05/22/25 18:31 Resident Activity Tracking Resident Involvement: Resident Care Provided Care Provided: OB Delivery
[2025-05-23] MEDS: IBUPROFEN 600 MG TAB PO PRN (07:26)
[2025-05-23] MEDS: DOCUSATE SODIUM 100 MG CAP PO SCH (07:27)
[2025-05-23] MEDS: PRENATAL VITAMIN 1 TAB PO SCH (07:27)
--- NOTE | 2025-05-23 09:44 | Anesthesia Procedure Note ---
Date of Service May 23, 2025 Anesthesia Post Epidural Note Vital Signs Vital Signs: Temp Pulse Resp BP Pulse Ox O2 Del Method 36.7 C 69 17 143/92 H 97 Room Air 05/23/25 07:25 05/23/25 07:25 05/23/25 07:25 05/23/25 07:25 05/23/25 07:05/23/25 07:25 Notes Mental Status: alert / awake / arousable Nausea / Vomiting: adequately controlled Pain: adequately controlled Airway Patency, RR, SpO2: stable & adequate BP & HR: stable & adequate Hydration State: stable & adequate Neuraxial Anesthesia: was administered and sensory block is resolving Anesthetic Complications: no major complications apparent and Pt Satisfied with anesthetic care Epidural: Removed without complications and With tip intact
[2025-05-23 10:43] LABS: Hematocrit (blood only) 27.9 % (37.0-47.0); Hemoglobin 9.2 g/dl (12.0-16.0); Mean Corpuscular Hemoglobin 28.4 pg (25.0-34.0); Mean Corpuscular Volume 86.1 fL (80.0-100.0); Platelet Count 161 K/uL (130-400); RDW Standard Deviation 45.7 fL (36.4-46.3); Red Blood Count 3.24 M/uL (4.20-5.40); White Blood Count 11.55 K/ul (4.8-10.8)
[2025-05-23] MEDS: AMPICILLIN/SULBACTAM SOD 1,500 MG/100 ML BAG IV SCH (10:50)
[2025-05-23 23:34] VITALS: RESP 18
[2025-05-24 06:41] LABS: Hematocrit (blood only) 27.9 % (37.0-47.0); Hemoglobin 9.3 g/dl (12.0-16.0)
--- NOTE | 2025-05-24 07:59 | Obstetrical Progress Note ---
Date of Service May 24, 2025 Assessment & Plan (1) care and examination: Plan: 39yo post- day-2 s/p Fells well today Continue post- care Encourage ambulation and Pain controlled Vital Signs and Hb stable D/c home today, follow with OB in 6 weeks Admission and Anticipated Discharge Date Admission Date: May 22, 2025 Supervising Physician Co-Signing Physician Notes Resident Physician Supervision Note: I interviewed and examined the patient. Discussed with Dr. Quiñones and agree with findings and plan as documented in the note. Any exceptions or clarifications are listed here: Doing well. Meeting goals. Plan d/c. Instructions given. f/u 6 weeks. Documented By: Chacha Terry MD, FACOG Subjective 39yo post- day 2 s/p Ambulation: fine Voiding: No voiding problems Passing Gas:: yes Diet Tolerance:: regular diet Lochia:: Small Feeding Type:: Current Pain Level: 1/10, controlled with ibuprofen Resting comfortably this AM in NAD. Denies FROST, CP, SOB, N/V/D, LE pain/swelling. Physical Exam Physical Exam: General: patient resting comfortably, NAD, non-toxic in appearance, answers questions appropriately Skin: warm, dry, intact Heart: S1/S2 heard, regular, no m/r/g Lungs: equal air entry bilaterally, no rales/rhonchi/wheezes Abd: Normoactive BS, soft, NT/ND, uterine fundus firm below umbilicus Ext: warm, no clubbing/cyanosis or edema, Biju's neg Neuro: nonfocal, patient AAOx4, speech intact, no facial droop, moving all extremities on command Results & Data Vital Signs (Past 12 Hours) Vital Signs Temp Pulse Resp BP Pulse Ox O2 Del Method 05/23/25 23:20 36.4 C L 75 18 131/85 96 Room Air Resident Activity Tracking Resident Involvement: Resident Care Provided Care Provided: OB Delivery
[2025-05-24 09:54] VITALS: BP 136/87; PULSE 69; TEMP 97.9; O2SAT 97
== END 2025-05-24 11:45 | disposition home or self-care (01) | DRG 807 ==
LOC: 4S1 13:22 → 4E2 05-23 04:17